=== PATIENT | female | born 1995 | race Caucasian/White ===

== ENCOUNTER 2017-03-13 09:26 | Emergency (ER) | payer BC, OTHER ==
[2017-03-13 10:02] LABS: Hematocrit 41.3 % (37.0-47.0); Hemoglobin 13.7 gm/dL (12.5-16.0); Mean Cell Volume 87.5 fl (78-100); Mean Corpuscular Hgb Conc 33.2 g/dl (32-36); Neutrophil # 6.1 K/mm3 (1.3-6.0); Neutrophil % 65.4 % (42-75.0); Platelet Count 323 K/mm3 (150-450); Red Blood Count 4.72 M/mm3 (4.2-5.4); Red Cell Distribution Width 13.7 % (11.5-14.0); White Blood Count 9.4 K/mm3 (4.0-10.5)
[2017-03-13 10:14] LABS: Albumin * 4.3 gm/dl (3.4-5.0); Anion Gap 14.4 mmol/L (6.8-13.8); BUN/Creatinine Ratio 26.7 (9.0-21.6); Bilirubin, Total 0.8 mg/dL (0.0-1.1); Ca. Corrected For Albumin 8.5 mg/dL (8.4-10.2); Calcium * 9.1 mg/dL (7.9-10.9); Carbon Dioxide 24.9 mmol/L (24-32.6); Potassium 3.3 mmol/L (3.4-4.6)
[2017-03-13 10:18] LABS: INR 1.06 INR (0.90-1.10); Partial Thrombolplastin Time 26.8 Seconds (24-32)
[2017-03-13] MEDS ORDERED: POTASSIUM CHLORIDE 20 MEQ TABLET.SA PO ONE (10:18)
--- OUTSIDE RECORDS SUMMARY | 2017-03-13 10:23 | XMS REPORT | Continuity of Care Document ---
:1995 Author Organization [facility] ([facility]) Address [address] [place] [address] Phone [phone] Care Team Providers Name Role Phone Vince Merino Primary Care Provider [phone] Source Comments This disclosure is being made pursuant to the Care Everywhere program, applicable federal and state laws, and may not contain all informaitonavailable regarding this patient.[facility] ([facility]) Active Allergies and Adverse Reactions No Known Allergies Current Medications No known medications Active Problems Problem Noted Date BMI (body mass index), pediatric, 95-99% for age 1110/19/2012 Environmental allergies 10/16/2010 Hypertension 09/18/2010 Acanthosis nigricans 08/30/2009 Hydronephrosis 06/09/2008 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8 F) 10/19/2012 10:30 AM [employer] Respiratory Rate 18 10/19/2012 10:30 AM [employer] Height 1.639 m (5' 4.53") 10/19/2012 10:30 AM [employer] Weight 74.5 kg (164 lb 3.9 oz) 10/19/2012 10:30 AM [employer] Body Mass Index 27.73 10/19/2012 10:30 AM [employer] Oxygen Saturation - - Plan of Care Health Maintenance Due Date Last Done Comments Hepatitis B Vaccine (1 of 3 - 1995 Primary Series) HPV Vaccine (1 of 3 - 02/13/2007 Female/Unknown 3 Dose Series) Tdap Vaccine 02/13/2007 Meningococcal Vaccine (1 of 2012 1) MMR Vaccine 02/13/2014 Td Vaccine 02/13/2014 Varicella Vaccine (1 of 2 - 02/13/2014 Adult - No Evidence of Immunity) Lipid Disorder Screening 04/03/2016 04/03/2011, Additional history exists 06/22/2010, 01/01/2010 Influenza Vaccine: Seasonal 06/24/2016 08/29/2009 (#1) Results from Last 3 Months Not on file
--- OUTSIDE RECORDS SUMMARY | 2017-03-13 10:23 | XMS REPORT | Continuity of Care Document ---
:1995 Author Organization [facility] [place] [address] Care Team Providers Name Role Phone Unavailable Primary Care Provider Unavailable Source Comments This disclosure is being made pursuant to the [employer] program and maynot contain all information available regarding this patient.[facility] Active Allergies and Adverse Reactions Not on File Current Medications Be aware that medications may not be up to date as of this document. Alwaysverify current medications with the patient. Not on file Active Problems Not on file Social History Tobacco Use Types Packs/Day Years Used Date Never Assessed Plan of Care Health Maintenance Due Date Last Done Comments HPV Vaccine ([id number]) (1 of 3 - Female/Unknown 3 Dose 02/13/2007 Series) Chlamydia Screening 2012 Retired-Tetanus Vaccine Adult 02/13/2015 Retired-INFLUENZA VACCINE 07/25/2015 Results from Last 3 Months Not on file
[2017-03-13] MEDS ORDERED: POTASSIUM CHLORIDE 20 MEQ TABLET.SA ONE (10:27)
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
[2017-03-13 10:37] VITALS: BP 138/88
== END 2017-03-13 10:42 | disposition home or self-care (01) ==
LOC: SUPCPDRO 09:26 → ER 09:26
DX: T14.8 Other injury of unspecified body region (principal); E87.6 Hypokalemia; W22.8XXA Striking against or struck by other objects, initial encounter